=== PATIENT | female | born 1935 | race Caucasian/White ===

== ENCOUNTER → 2019-06-11 | Outpatient (CLI) | payer OTHER ==
--- NOTE | 2019-06-13 21:21 | SLE ---
[facility] [place] [address] POLYSOMNOGRAPHY STUDY Name: JULIUS BENÍTEZIsaak Shearer Room #: [facility]#: [id number] Admission: 06/11/19 Attend Phys: Dania Aguilar MD Discharge: Date of : 39 Report #: [id number] THIS REPORT FOR: //name// CC: Dania Alvarez DATE OF SERVICE: 06/11/2019 ATTENDING PHYSICIAN: Dr. Red Pinzon. The patient is an 84 years old who weighs 191 pounds with a BMI of 34.9. The patient's Decker score was 8. The patient underwent split night study performed at [facility]. During the night study, the patient spent 520 minutes in bed and slept for 338 minutes with a low sleep efficiency of 65%. Sleep latency was 15.2 minutes with a REM latency of 100 minutes. Sleep architecture showed normal stage 1 and stage 2 sleep, normal slow wave and normal REM sleep. During the initial diagnostic portion of the study, the patient slept for 338 minutes. During that time, the patient had 23 obstructive apneas, no mixed or central apneas and 27 hypopneas. The patient's apnea hypopnea index was 8.9 per hour with a REM index of 30 per hour. Supine index of 15 per hour. EKG monitoring revealed an average heart rate of 63 beats per minute. PVCs were observed initially and improved with CPAP. No sustained arrhythmias seen. PLMs were not observed. Nocturnal oximetry study revealed an average oxygen saturation of 93% with the lowest of 70%. Fifteen minutes were spent in oxygen saturation of less than 89%. The patient met the criteria for CPAP initiation. It was started at 5 cm water and titrated up to 10 cm of water. At the final pressure, the patient slept for 41 minutes including 1.8 minutes of REM sleep. The patient's AHI was reduced to 2.9 per hour and oxygen saturation remained above 90%. The patient had supine and REM sleep at the final pressure. IMPRESSION: 1. Mild sleep apnea-hypopnea syndrome with worsening during REM sleep. Total AHI 8.9 per hour with a REM AHI of 30 per hour. 2. Nocturnal hypoxia secondary to obstructive sleep apnea, but resolved with CPAP. [address] [address] POLYSOMNOGRAPHY STUDY Name: JACKELINMARTINA FOX Room #: [facility]#: [id number] Admission: 06/11/19 Attend Phys: Dania Aguilar MD Discharge: Date of : 39 Report #: [id number] 3. No clinically significant periodic limb movements of sleep. RECOMMENDATIONS: 1. CPAP at 10 cm water completely eliminated the patient's sleep apnea and should be used on a nightly basis. 2. Follow up in 4-6 weeks to assess compliance with CPAP and to document clinical improvement. 3. Weight loss is advised. 4. Avoid [employer] depressants. 5. Cautioned regarding driving until symptoms of sleep apnea resolve with the use of CPAP. <ELECTRONICALLY SIGNED> By: Dionicio Sweeney MD 06/13/19 2121 [id number] 1404 Dionicio Sweeney MD /nt
== END ==
LOC: SLEEPLAB 09:46
DX: G47.33 Obstructive sleep apnea (adult) (pediatric) (principal); G47.30 Sleep apnea, unspecified; R09.02 Hypoxemia

== ENCOUNTER → 2019-06-12 | Outpatient (CLI) | payer OTHER | LOC: SJCVC 08:53 | DX: R94.31 Abnormal electrocardiogram [ECG] [EKG] (principal); I49.3 Ventricular premature depolarization; I12.9 Hypertensive chronic kidney disease with stage 1 through stage 4 chronic kidney disease, or unspecified chronic kidney disease; E11.22 Type 2 diabetes mellitus with diabetic chronic kidney disease; N18.9 Chronic kidney disease, unspecified; E78.00 Pure hypercholesterolemia, unspecified; J44.9 Chronic obstructive pulmonary disease, unspecified; Z79.899 Other long term (current) drug therapy; Z79.82 Long term (current) use of aspirin ==

== ENCOUNTER → 2019-06-12 | Outpatient (CLI) | payer OTHER | LOC: SJCVCIMAG → SJCVC → SJCVCIMAG 10:59 → SJCVC 11:11 → SJCVCIMAG 12:01 → SJCVC 12:44 → SJCVCIMAG 13:11 → SJCVC 13:30 → SJCVCIMAG 14:21 | DX: I08.8 Other rheumatic multiple valve diseases (principal); E11.9 Type 2 diabetes mellitus without complications ==

== ENCOUNTER → 2019-06-25 | Outpatient (CLI) | payer OTHER | LOC: SJCVCIMAG 07:32 | DX: I25.10 Atherosclerotic heart disease of native coronary artery without angina pectoris (principal); E11.9 Type 2 diabetes mellitus without complications; I10 Essential (primary) hypertension; Z98.61 Coronary angioplasty status; E78.00 Pure hypercholesterolemia, unspecified; J45.909 Unspecified asthma, uncomplicated; Z90.710 Acquired absence of both cervix and uterus; Z88.8 Allergy status to other drugs, medicaments and biological substances; Z79.84 Long term (current) use of oral hypoglycemic drugs; Z79.82 Long term (current) use of aspirin; Z79.4 Long term (current) use of insulin; Z79.899 Other long term (current) drug therapy ==

== ENCOUNTER → 2019-11-27 | Outpatient (CLI) | payer OTHER | LOC: SJCVC 11:39 | PROVIDERS: ATTEND Internal Medicine Cardiovascular Disease | DX: E78.00 Pure hypercholesterolemia, unspecified (principal) ==

== ENCOUNTER → 2019-12-24 | Outpatient (CLI) | payer OTHER | LOC: SJCVCIMAG 09:00 | PROVIDERS: ATTEND Internal Medicine Cardiovascular Disease | DX: I08.3 Combined rheumatic disorders of mitral, aortic and tricuspid valves (principal); I25.10 Atherosclerotic heart disease of native coronary artery without angina pectoris; I10 Essential (primary) hypertension; R93.1 Abnormal findings on diagnostic imaging of heart and coronary circulation; E78.00 Pure hypercholesterolemia, unspecified; R60.9 Edema, unspecified; J45.909 Unspecified asthma, uncomplicated; E11.9 Type 2 diabetes mellitus without complications; Z79.82 Long term (current) use of aspirin; Z79.4 Long term (current) use of insulin; Z79.899 Other long term (current) drug therapy ==

== ENCOUNTER → 2020-08-21 | Outpatient (CLI) | payer OTHER ==
[~2020-08-21] MED LIST: ASA81BEC PO; CARVEDILOL25 MG PO; COZAAR 50 MG TA50 M1 PO; FUROSEMIDE 40 M40 MG PO; HYDRALAZINE 5050 MG PO; KLOR-CON 1010 MEQ PO; LEVOTHYROXINE100 MC2 PO; LIPITOR40 MG PO; MULTI VITAMIN1 EACH PO; NORVASC10 MG PO; NOVOLOG100 UNIT/1; PROTONIX40 M4 PO; TRELEGY ELLIPT1 EACH INH; VITAMIN D3125 MC1 PO; VITAMIN E1000 UNIT PO
== END ==
LOC: LAB 09:38
PROVIDERS: ATTEND Pediatrics
DX: Z20.822 Contact with and (suspected) exposure to COVID-19 (principal)

== ENCOUNTER 2020-08-26 06:07 | Outpatient (CLI) | payer OTHER ==
[~2020-08-26] VITALS: Ht 157.5 cm; Wt 90.7 kg
[2020-08-26 08:34] VITALS: BP 142/54
--- NOTE | 2020-08-26 08:54 | EKG ---
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[employer]: WILBERTO : 1935 Requested By: Red Pinzon Order Number: [id number] MD: Jose Manuel Saxena Measurements Intervals [place] Rate: 54 P: 30 MA: 202 QRS: 6 QRSD: 113 T: 77 QT: 494 QTc: 469 Interpretive Statements Sinus bradycardia with first-degree AV block Borderline intraventricular conduction delay No previous ECG available for comparison Electronically Signed On 08-26-2020 8:54:19 CDT by Jose Manuel Saxena [email or web address] <ELECTRONICALLY SIGNED> By: Jose Manuel Saxena MD, [facility] 08/26/20 [id number] 6 Jose Manuel Saxena MD, FACC /EPI
--- NOTE | 2020-08-28 16:06 | PATH ---
[facility] [address] [place] [address] PATHOLOGY RPT PROCEDURE Name: MARTINA BENÍTEZ Room #: DEP [facility]#: [id number] Admission: 08/26/20 Date of : 39 Discharge: 08/26/20 Report #: [id number] Path Case #: [id number] Note [facility] Accession Number: [id number] TESTS RESULT FLAG UNITS REF RANGE LAB Clinician Provided Cytology Information No. of containers..01 Other (Miscellaneous) Source: [place] DIAGNOSIS: 02 [place] NEGATIVE FOR MALIGNANT EPITHELIAL CELLS. NORMAL BRONCHIAL CELLS ARE PRESENT. PULMONARY MACROPHAGES PRESENT, INDICATIVE OF LOWER RESPIRATORY TRACT SAMPLING. Pathologist ICD10: 02 R05 Signed out by: 02 Mindy Edge MD, Pathologist NPI- [id number] Performed by: 01 Paula Barakat [employer] Architect ([facility]) Gross description: 01 20ML, RED, 1TP /LCS 08/27/2020 0600 Local FLAG LEGEND: L-Low Normal,H-High Normal,LL-Alert Low,HH-Alert High <-Panic Low,>-Panic High,A-Abnormal,AA-Critical Abnormal Performed at: [address] [place] [address] Jeet Plummer MD, [address] [address] Mindy Edge MD, Specimen Comment: A courtesy copy of this report has been sent to [phone], [phone] Specimen Comment: [id number] Specimen Comment: Report sent to DR CHESTER / DR ESCUDERO Specimen Comment: A duplicate report has been generated due to demographic updates. Performed at: [address], [place], [place] [id number] [address] [address] PATHOLOGY RPT PROCEDURE Name: JULIUS BENÍTEZIsaak Shearer Room #: DEP [facility]#: [id number] Admission: 08/26/20 Date of : 39 Discharge: 08/26/20 Report #: [id number] Path Case #: [id number] MD Jeet Plummer MD Phone: [phone]
== END 2020-08-26 10:35 | disposition home or self-care (01) ==
LOC: PUL 06:07 → TBA 06:07 → PUL 08:52
PROVIDERS: ATTEND Pediatrics
DX: I44.0 Atrioventricular block, first degree (principal); R00.1 Bradycardia, unspecified; R61 Generalized hyperhidrosis; R05 Cough
CPT/HCPCS: 50010; 62110; 62900; 70005

== ENCOUNTER → 2020-12-22 | Outpatient (CLI) | payer OTHER | LOC: SJCVC 09:50 | PROVIDERS: ATTEND Internal Medicine Cardiovascular Disease | DX: R00.1 Bradycardia, unspecified (principal); I25.10 Atherosclerotic heart disease of native coronary artery without angina pectoris; E78.00 Pure hypercholesterolemia, unspecified; R60.9 Edema, unspecified; E11.22 Type 2 diabetes mellitus with diabetic chronic kidney disease; I12.9 Hypertensive chronic kidney disease with stage 1 through stage 4 chronic kidney disease, or unspecified chronic kidney disease; N18.9 Chronic kidney disease, unspecified; J45.909 Unspecified asthma, uncomplicated; E78.5 Hyperlipidemia, unspecified; G47.33 Obstructive sleep apnea (adult) (pediatric); E11.51 Type 2 diabetes mellitus with diabetic peripheral angiopathy without gangrene; I73.9 Peripheral vascular disease, unspecified; Z98.61 Coronary angioplasty status; Z90.710 Acquired absence of both cervix and uterus; Z98.890 Other specified postprocedural states; Z88.8 Allergy status to other drugs, medicaments and biological substances; Z79.82 Long term (current) use of aspirin; Z79.4 Long term (current) use of insulin; Z79.899 Other long term (current) drug therapy; Z87.442 Personal history of urinary calculi ==

== ENCOUNTER → 2021-07-02 | Outpatient (CLI) | payer OTHER | LOC: SJCVCIMAG 06-25 16:35 | PROVIDERS: ATTEND Internal Medicine Cardiovascular Disease | DX: I08.0 Rheumatic disorders of both mitral and aortic valves (principal); I25.10 Atherosclerotic heart disease of native coronary artery without angina pectoris; I10 Essential (primary) hypertension; E78.5 Hyperlipidemia, unspecified; J44.9 Chronic obstructive pulmonary disease, unspecified; E11.9 Type 2 diabetes mellitus without complications; G47.33 Obstructive sleep apnea (adult) (pediatric); Z88.1 Allergy status to other antibiotic agents; Z79.82 Long term (current) use of aspirin; Z79.4 Long term (current) use of insulin; Z79.899 Other long term (current) drug therapy ==